=== PATIENT | female | born 1960 | race African-American/Black ===

== ENCOUNTER 2019-07-21 10:53 | Inpatient (IN) | payer OTHER ==
[~2019-07-21] VITALS: Ht 177.8 cm; Wt 87.5 kg
[2019-07-21] MEDS ORDERED: ASPirin 81 mg TAB PO ONE (11:15)
[2019-07-21 11:23] LABS: Basophils # (auto) 0.1 uL; Basophils % (auto) 0.9 % (0.0-2.0); Eosinophils # (auto) 0.1 uL; Eosinophils % (auto) 1.6 % (0.0-7.0); Hematocrit 40.4 % (36.0-46.0); Hemoglobin 13.4 g/dL (12.2-16.2); Lymphocytes # (auto) 2.4 uL; Lymphocytes % (auto) 43.1 % (10.0-50.0); Mean Corpuscular Hemoglobin 28.3 pg (28.0-32.0); Mean Corpuscular Hgb Conc. 33.2 g/dL (32.0-36.0); Mean Corpuscular Volume 85.2 fL (80.0-100.0); Monocytes # (auto) 0.4 uL; Neutrophils # (auto) 2.7 uL; Neutrophils % (auto) 47.4 % (37.0-80.0); Nucleated Red Blood Cells % 0.2 %; Platelet Count (auto) 244 10^3/uL (140-450); Red Blood Cells 4.75 10^6/uL (4.0-5.20); Red Cell Distribution Width 12.8 % (11.8-14.3); White Blood Cell 5.6 10^3/uL (4.4-10.8)
[2019-07-21 11:39] LABS: Albumin 3.8 g/dL (3.4-5.0); Anion Gap 5 (5-15); Blood Urea Nitrogen 12 mg/dL (7-18); Carbon Dioxide 29 mmol/L (21-32); Chloride 104 mmol/L (98-107); Glucose 146 mg/dL (74-106); Sodium 138 mmol/L (136-145)
[2019-07-21 11:46] LABS: Alanine Aminotransferase 32 U/L (13-56); Alkaline Phosphatase 122 U/L (45-117); Aspartate Aminotransferase 23 U/L (15-37); BUN/Creatinine Ratio 12.8; Bilirubin, Total 0.2 mg/dL (0.2-1.0); GFR African American 79 mL/min; GFR Non-African American 65 mL/min; Total Protein 7.8 g/dL (6.4-8.2)
[2019-07-21] MEDS ORDERED: ONDANSETRON HCL 4 MG/2 ML VIAL IV ONE (12:00)
[2019-07-21] MEDS ORDERED: MORPHINE SULF INJ 2 MG/ML SYRINGE 1ML IV PRN ×2 (16:45)
[2019-07-21] MEDS ORDERED: hydrALAZINE HCL 20 MG/ML VL IV PRN (16:45)
[2019-07-21] MEDS ORDERED: NITROGLYCERIN 0.4 MG SL TAB SL PRN (16:45)
[2019-07-21] MEDS ORDERED: DEXTROSE (50%) 50ML SYRG IV PRN (16:45)
[2019-07-21] MEDS ORDERED: HYDROcodone-ACET 5/325MG TAB PO PRN (16:45)
[2019-07-21] MEDS ORDERED: ONDANSETRON HCL 4 MG/2 ML VIAL IV PRN (16:45)
[2019-07-21] MEDS: InsuLIN REG 1unit/0.01ml Soln (100units/ml) SC SCH ×2 (17:35→22:14)
[2019-07-21] MEDS: ACCU-CHEK COMFORT CURVE STRIP VI SCH ×2 (17:36→22:13)
--- NOTE | 2019-07-21 18:50 | NUR ---
Telemetry admit from [facility] admitted to Telemetry unit after SBAR received. Patient oriented to Sunny Ordonez, primary RN, unit, room, bed, and unit policies regarding patient care and visiting hours. Patient now on continuous telemetry monitoring, tele box # 7 and telemetry reading on arrival to unit is [id number]. Patient placed on bedside oxygen, weighed by bedscale and encouraged to call if they need something. All questions and concerns addressed, patient verbalized understanding.
[2019-07-21 19:00] VITALS: BP 129/74
[2019-07-21] MEDS ORDERED: METF-370 PO (19:01)
[2019-07-21] MEDS ORDERED: METO-158 PO (19:01)
[2019-07-21] MEDS ORDERED: LISI-646 PO (19:01)
[2019-07-21] MEDS ORDERED: ASPI81CH43 PO (19:01)
[2019-07-21] MEDS ORDERED: NITR0.4S29 SL (19:01)
--- NOTE | 2019-07-21 19:39 | NUR ---
RECEIVED PATIENT FROM DAY SHIFT RN. PATIENT RESTING IN BED. NO S/S OF DISTRESS NOTED. DENIED PAIN FOR NOW. REINFORCED [facility] ON SATURDAY. PATIENT VERBALIZED UNDERSTANDING. POC INSTRUCTED AND ENCOURAGED PATIENT TO CALL FOR ASSIST IF NEEDED. BED IN LOWEST POSITION WITH SIDE RAILS X 2. CALL ORTIZ WITHIN REACH. CONTINUE TO MONITOR FOR CHANGES Q1H AND PRN.
--- NOTE | 2019-07-21 21:42 | NUR ---
PATIENT SIGNED CONSENT FOR [facility]. CONTINUE CARE.
[2019-07-21 22:00] VITALS: BP 107/72
[2019-07-21] MEDS: METOPROLOL TARTRATE 25 MG TAB PO SCH (22:00)
[2019-07-21] MEDS: ATORVASTATIN 20 MG TAB PO SCH (22:12)
--- NOTE | 2019-07-21 22:15 | NUR ---
ACCU-CHECK, BS 206. INSULIN GIVEN ORDERED. CONTINUE TO MONITOR.
--- NOTE | 2019-07-22 02:35 | NUR ---
PATENT SLEEPING. NO S/S OF DISTRESS NOTED. CONTINUE CARE.
[2019-07-22 05:00] VITALS: BP 103/61
[2019-07-22] MEDS: ACCU-CHEK COMFORT CURVE STRIP VI SCH ×4 (06:34→21:41)
[2019-07-22] MEDS: InsuLIN REG 1unit/0.01ml Soln (100units/ml) SC SCH ×4 (06:35→21:41)
--- NOTE | 2019-07-22 06:35 | NUR ---
ACCU-CHECK, BS 188. INSULIN GIVEN ORDERED. CONTINUE TO MONITOR.
--- NOTE | 2019-07-22 08:00 | NUR ---
Opening Shift Note Assumed care of patient, awake and alert. No S/S of distress/SOB or pain. Instructed on POC and to call for assist PRN, will continue to monitor for changes Q1hr and PRN.
[2019-07-22 09:50] VITALS: BP 118/68
[2019-07-22] MEDS: METOPROLOL TARTRATE 25 MG TAB PO SCH ×2 (10:00→21:40)
[2019-07-22] MEDS: ASPirin-EC 81 mg tab PO SCH (10:03)
[2019-07-22] MEDS: FAMOTIDINE 20 MG TAB PO SCH (10:03)
[2019-07-22] MEDS: LISINOPRIL 10 MG TAB PO SCH (10:04)
[2019-07-22 11:38] LABS: Basophils # (auto) 0 uL; Basophils % (auto) 0.9 % (0.0-2.0); Eosinophils # (auto) 0.1 uL; Eosinophils % (auto) 1.7 % (0.0-7.0); Hematocrit 39.3 % (36.0-46.0); Hemoglobin 13.2 g/dL (12.2-16.2); Lymphocytes # (auto) 1.7 uL; Lymphocytes % (auto) 34.9 % (10.0-50.0); Mean Corpuscular Hemoglobin 28.8 pg (28.0-32.0); Mean Corpuscular Hgb Conc. 33.7 g/dL (32.0-36.0); Mean Corpuscular Volume 85.5 fL (80.0-100.0); Monocytes # (auto) 0.4 uL; Monocytes % (auto) 7.8 % (0.0-12.0); Neutrophils # (auto) 2.7 uL; Neutrophils % (auto) 54.7 % (37.0-80.0); Nucleated Red Blood Cells % 0.1 %; Platelet Count (auto) 214 10^3/uL (140-450); Red Blood Cells 4.59 10^6/uL (4.0-5.20); Red Cell Distribution Width 12.9 % (11.8-14.3); White Blood Cell 4.9 10^3/uL (4.4-10.8)
[2019-07-22 11:52] LABS: INR 1.07 (0.9-1.15); Partial Thromboplastin Time 27.1 sec (23.64-32.05)
[2019-07-22 12:02] LABS: Calcium 8.8 mg/dL (8.5-10.1); Potassium 4.5 mmol/L (3.5-5.1)
[2019-07-22 13:00] VITALS: BP 132/75
[2019-07-22 17:33] VITALS: BP 103/59
[2019-07-22] MEDS: ACETAMINOPHEN 500 MG TAB PO PRN (17:56)
--- NOTE | 2019-07-22 17:56 | NUR ---
Complained of headache, medicated with Tylenol PO as ordered. Will continue care.
--- NOTE | 2019-07-22 19:30 | NUR ---
RECEIVED PATIENT FROM DAY SHIFT RN. PATIENT RESTING IN BED. NO S/S OF DISTRESS NOTED. DENIED PAIN FOR NOW. REINFORCED NPO AFTER MIDNIGHT FOR PROCEDURE TOMORROW. PATIENT VERBALIZED UNDERSTANDING. POC INSTRUCTED AND ENCOURAGED PATIENT TO CALL FOR ASSIST IF NEEDED. BED IN LOWEST POSITION WITH SIDE RAILS X 2. CALL ORTIZ WITHIN REACH. CONTINUE TO MONITOR FOR CHANGES Q1H AND PRN.
--- NOTE | 2019-07-22 20:14 | NUR ---
URINE SAMPLE COLLECTED AND SENT. CONTINUE TO MONITOR.
[2019-07-22 20:29] LABS: Urine Bacteria FEW /hpf (None Seen); Urine Blood Negative /uL (Negative); Urine WBC 27 /hpf (0 - 5)
[2019-07-22] MEDS: ATORVASTATIN 20 MG TAB PO SCH (21:40)
[2019-07-22 22:00] VITALS: BP 101/57
--- NOTE | 2019-07-22 22:02 | NUR ---
ACCU-CHECK, BS 195. INSULIN GIVEN ORDERED. CONTINUE TO MONITOR.
[2019-07-23] MEDS ORDERED: SODIUM CHLORIDE 0.9% 1,000 ML IV SCH (00:01)
--- NOTE | 2019-07-23 00:14 | NUR ---
REINFORCED NPO FROM NOW ON. FOOD AND WATER REMOVED FROM BEDSIDE. CONTINUE TO MONITOR.
--- NOTE | 2019-07-23 02:14 | NUR ---
PATENT SLEEPING. NO S/S OF DISTRESS NOTED. CONTINUE CARE.
[2019-07-23 05:00] VITALS: BP 105/63
--- NOTE | 2019-07-23 05:14 | NUR ---
IV insertion IV access obtained, via clean sterile technique by inserting [20] gauge catheter at [LFA] after [1] attempt(s). IV secured properly. No trauma to site. Patient tolerated well. IV INFILTRATED AND removal IV DC'd with clean sterile technique, catheter fully intact. Pressure dressing applied to site. Patient tolerated well. NOTE:
[2019-07-23 06:44] LABS: Basophils # (auto) 0 uL; Basophils % (auto) 0.4 % (0.0-2.0); Eosinophils # (auto) 0.1 uL; Eosinophils % (auto) 1.9 % (0.0-7.0); Hematocrit 40.7 % (36.0-46.0); Hemoglobin 13.8 g/dL (12.2-16.2); Lymphocytes # (auto) 1.2 uL; Lymphocytes % (auto) 24.5 % (10.0-50.0); Mean Corpuscular Hemoglobin 28.8 pg (28.0-32.0); Mean Corpuscular Hgb Conc. 33.9 g/dL (32.0-36.0); Mean Corpuscular Volume 84.9 fL (80.0-100.0); Monocytes # (auto) 0.3 uL; Monocytes % (auto) 6.6 % (0.0-12.0); Neutrophils # (auto) 3.2 uL; Neutrophils % (auto) 66.6 % (37.0-80.0); Nucleated Red Blood Cells % 0.1 %; Platelet Count (auto) 213 10^3/uL (140-450); Red Blood Cells 4.79 10^6/uL (4.0-5.20); Red Cell Distribution Width 12.9 % (11.8-14.3); White Blood Cell 4.8 10^3/uL (4.4-10.8)
[2019-07-23] MEDS: ACCU-CHEK COMFORT CURVE STRIP VI SCH ×4 (06:53→22:11)
[2019-07-23] MEDS: InsuLIN REG 1unit/0.01ml Soln (100units/ml) SC SCH ×4 (06:54→22:11)
--- NOTE | 2019-07-23 06:54 | NUR ---
ACCU-CHECK, BS 175. NO COVERAGE SINCE PATIENT NPO FOR PROCEDURE. CONTINUE TO MONITOR.
[2019-07-23 07:01] LABS: INR 1.03 (0.9-1.15); Partial Thromboplastin Time 27.1 sec (23.64-32.05)
[2019-07-23 07:05] LABS: Potassium 4.5 mmol/L (3.5-5.1)
[2019-07-23 07:16] LABS: BUN/Creatinine Ratio 18.5; Calcium 8.9 mg/dL (8.5-10.1)
[2019-07-23 09:00] VITALS: BP 120/68
--- NOTE | 2019-07-23 09:00 | NUR ---
Called Boots And Shoes Supervisor re: time of [facility], spoke with Shanthi GARCIA, no definite time yet, will call floor RN if its time for the procedure.
[2019-07-23] MEDS: METOPROLOL TARTRATE 25 MG TAB PO SCH ×3 (10:00→22:10)
[2019-07-23] MEDS: ASPirin-EC 81 mg tab PO SCH (11:23)
[2019-07-23] MEDS: LISINOPRIL 10 MG TAB PO SCH (11:23)
[2019-07-23] MEDS: FAMOTIDINE 20 MG TAB PO SCH (11:23)
--- NOTE | 2019-07-23 12:15 | NUR ---
Called analytical lab analyst re: follow up of time for [facility], spoke with Darline GARCIA, still no definite time yet, they are attending a STEMI case at the moment and most of the procedures are being push back. Will call floor RN if its time for the procedure.
[2019-07-23 13:00] VITALS: BP 130/74
--- NOTE | 2019-07-23 13:43 | NUR ---
Patient brought to [facility] via bed for [facility]. Gave reports to Shanthi GARCIA.
[2019-07-23] MEDS ORDERED: fentaNYL CITRATE 100 MCG/2 ML VL ONE ×2 (14:47→15:22)
[2019-07-23] MEDS ORDERED: ANGIOMAX 250 MG VIAL IV ONE (14:47)
[2019-07-23] MEDS ORDERED: MIDAZOLAM HCL 1MG/1ML-2 ML VIAL ONE ×2 (14:47→15:23)
[2019-07-23] MEDS ORDERED: IOHEXOL 350 MG/ML 100ML IJ ONE (14:48)
[2019-07-23] MEDS ORDERED: SODIUM CHL 0.9% 0 ML ONE (14:48)
[2019-07-23] MEDS ORDERED: LIDOCAINE 2%HCL (LOCAL ANESTH.) INJ 20ML MDV ONE (14:48)
[2019-07-23] MEDS ORDERED: VERAPAMIL 2.5MG/ML INJ 2ML VIAL IV ONE (14:55)
[2019-07-23] MEDS ORDERED: HEPARIN SODIUM (PORCINE) 5000 UNITS/ML 1ML VIAL ONE (14:55)
--- NOTE | 2019-07-23 17:51 | NUR ---
PATIENT WASN'T IN THE ROOM
--- NOTE | 2019-07-23 17:54 | NUR ---
PATIENT WASN'T IN THE ROOM FOR 1700 VITALS
[2019-07-23] MEDS ORDERED: MORPHINE SULF INJ 2 MG/ML SYRINGE 1ML IV ONE (18:00)
[2019-07-23] MEDS ORDERED: ALPRAZolam 0.5 MG TAB PO PRN (18:15)
--- NOTE | 2019-07-23 18:15 | NUR ---
Received reports from [employer] Dual Rate Officer, patient back to room S/P [facility] via right wrist. Patient is alert and oriented, not respiratory distress. With right wrist dressing dry and intact. Bed alarm on and side rails up x2. Will continue to monitor.
--- NOTE | 2019-07-23 19:55 | NUR ---
Opening Shift Note Assumed care of patient, awake and alert. No S/S of distress/SOB or pain. Instructed on POC and to call for assist PRN, will continue to monitor for changes Q1hr and PRN. Patient right wrist dressing dry and intact. Family at bedside.
[2019-07-23 20:00] VITALS: BP 103/62
[2019-07-23 22:00] VITALS: BP 103/62
[2019-07-23] MEDS: ATORVASTATIN 20 MG TAB PO SCH (22:11)
[2019-07-24 04:30] VITALS: BP 95/61
[2019-07-24] MEDS: ACCU-CHEK COMFORT CURVE STRIP VI SCH ×2 (06:49→12:35)
[2019-07-24] MEDS: InsuLIN REG 1unit/0.01ml Soln (100units/ml) SC SCH ×2 (06:50→12:36)
--- NOTE | 2019-07-24 08:00 | NUR ---
Complained of chest pain described as ache, stat EKG done. EKG result normal. Will continue care.
[2019-07-24 09:00] VITALS: BP 105/66
[2019-07-24] MEDS: METOPROLOL TARTRATE 25 MG TAB PO SCH (10:00)
[2019-07-24] MEDS ORDERED: ISOSORBIDE MONONITRATE ER 60 MG TAB PO SCH (10:00)
[2019-07-24] MEDS: LISINOPRIL 10 MG TAB PO SCH (10:20)
[2019-07-24] MEDS: ASPirin-EC 81 mg tab PO SCH (10:21)
[2019-07-24] MEDS: FAMOTIDINE 20 MG TAB PO SCH (10:21)
[2019-07-24] MEDS: ACETAMINOPHEN 500 MG TAB PO PRN (11:19)
--- NOTE | 2019-07-24 12:44 | NUR ---
Nutrition Assessment Notes please see attached link for complete assessment Est. Needs based on BW (87 kg): kcal (23-25 kcal/kgBW), 87-95 gms pro (1.0-1.1 gms/kgBW). Will continue to monitor pertinent labs and reassess nutrient need prn Addendum: 07/24/19 at [address] Amended: Links added.
[2019-07-24 13:00] VITALS: BP_SYST 130; BP_SYST 96; BP_DIAS 47; BP_DIAS 70
[2019-07-24 13:13] VITALS: BP 115/69
== END 2019-07-24 15:35 | disposition home or self-care (01) | DRG 287 ==
LOC: ER 10:59 → TELE 11:00 → TELE-EAST 18:41
PROVIDERS: ADMIT Nurse Practitioner Acute Care; ATTEND Internal Medicine
PROC: 4A023N7 Measurement of Cardiac Sampling and Pressure, Left Heart, Percutaneous Approach (ICD-10-PCS; principal; 2019-07-23)
PROC: B2111ZZ Fluoroscopy of Multiple Coronary Arteries using Low Osmolar Contrast (ICD-10-PCS; 2019-07-23)
PROC: B2151ZZ Fluoroscopy of Left Heart using Low Osmolar Contrast (ICD-10-PCS; 2019-07-23)
DX: I24.9 Acute ischemic heart disease, unspecified (principal); E11.9 Type 2 diabetes mellitus without complications; E78.5 Hyperlipidemia, unspecified; I10 Essential (primary) hypertension; Z90.49 Acquired absence of other specified parts of digestive tract; Z82.49 Family history of ischemic heart disease and other diseases of the circulatory system; Z80.9 Family history of malignant neoplasm, unspecified; Z79.84 Long term (current) use of oral hypoglycemic drugs; Z79.899 Other long term (current) drug therapy; Z79.82 Long term (current) use of aspirin
CPT/HCPCS: 36415; 71045; 76705; 80048; 80053; 81001; 82565; 82962; 83036; 83735; 84484; 85025; 85610; 85730; 86141; 93005; 93306; 96374; 99152; 99291; G0378; J1815; J2250; J2405

== ENCOUNTER 2019-11-02 00:39 | Emergency (ER) | payer OTHER ==
[~2019-11-02] VITALS: Ht 177.8 cm; Wt 81.6 kg
[~2019-11-02 00:39] MED LIST: ASPI81CH43 PO; LISI-646 PO; METF-370 PO; METO-158 PO; NITR0.4S29 SL
[2019-11-02] MEDS ORDERED: ACETAMINOPHEN 500 MG TAB PO ONE (02:00)
[2019-11-02] MEDS ORDERED: KETOROLAC TROMETH 60MG/2ML VIAL IM ONE (02:00)
[2019-11-02 02:53] VITALS: BP 165/87
[2019-11-02] MEDS ORDERED: TETANUS-DIPTH-ACEL PERTUSSIS 0.5ML SYR Tdap IM ONE (03:00)
[2019-11-02] MEDS ORDERED: BACITRACIN TOP OINT 1 UD PKG TOP ONE (03:15)
== END 2019-11-02 03:42 | disposition home or self-care (01) ==
LOC: ER 00:41
DX: S62.636A Displaced fracture of distal phalanx of right little finger, initial encounter for closed fracture (principal); S61.316A Laceration without foreign body of right little finger with damage to nail, initial encounter; E11.9 Type 2 diabetes mellitus without complications; Z90.49 Acquired absence of other specified parts of digestive tract; Z79.82 Long term (current) use of aspirin; Z79.899 Other long term (current) drug therapy; W23.0XXA Caught, crushed, jammed, or pinched between moving objects, initial encounter; Y93.89 Activity, other specified; Y92.149 Unspecified place in prison as the place of occurrence of the external cause; Y99.0 Civilian activity done for income or pay
CPT/HCPCS: 11760; 73140; 90471; 90715; 96372; 99285; J1885; 11730